=== PATIENT | male | born 1995 | race Caucasian/White ===

== ENCOUNTER 2016-07-25 21:55 | Emergency (ER) | payer BC, OTHER ==
[2016-07-25] MEDS ORDERED: MECLIZINE 12.5 MG TAB PO STA (22:42)
[2016-07-25] MEDS ORDERED: ACETAMINOPHEN TAB 500 MG TAB PO STA (22:42)
[2016-07-25] MEDS ORDERED: SODIUM CHLORIDE 0.9% 1,000 ML IV ONE (22:42)
[2016-07-25 23:09] LABS: Basophils # (A) 0.1 k/uL (0-0.2); Basophils % (A) 1 %; CHCM 33.2; Eosinophils # (A) 0.1 k/uL (0-0.7); Eosinophils % (A) 1 %; HCT 48.3 % (39.0-53.0); HDW 2.27; HGB 15.6 gm/dL (13.0-17.5); Luc # (Auto) 0.26; Luc % (Auto) 4; Lymphocytes # (A) 1.2 k/uL (1.0-4.8); Lymphocytes % (A) 19 %; MCH 28.3 pg (25.0-35.0); MCHC 32.2 g/dL (31.0-37.0); MCV 87.6 fL (80.0-100.0); Mean Platelet Volume 7.5; Monocytes # (A) 0.6 k/uL (0-1.0); Monocytes % (A) 10 %; Neutrophils # (A) 4.1 k/uL (1.3-7.7); Neutrophils % (A) 66 %; RBC 5.51 m/uL (4.30-5.90); RDW 12.9 % (11.5-15.5); WBC 6.3 k/uL (3.8-10.6); WBC (Perox) 6.48
--- NOTE | 2016-07-25 23:12 | ED ---
URI HPI - General Chief Complaint: Upper Respiratory Infection Stated Complaint: flu like symptoms/pain all over Time Seen by Provider: 07/25/16 22:18 Source: patient, RN notes reviewed Mode of arrival: ambulatory Limitations: no limitations - History of Present Illness Initial Comments: 21-year-old male presents emergency Department with multiple complaints. Patient states he has been sick essentially since May. Patient has been on some antibiotics amoxicillin and as advised. Patient states that he started to feel better after amoxicillin and azithromycin did nothing for. Patient has sinus congestion, cough and sore throat. Patient is started on amoxicillin ( primary care physician. Patient states that she he comes here today because he became very dizzy states room was spinning and he fell. Patient does not have a head injury. Patient states she is concerned with the dizziness. Patient states that it was better when he closes his eyes did not move. Patient denies any chest pain or palpitations. Patient states she also has been having on and off diarrhea for us for months and his family history of IBS. Patient has no abdominal pain denies abdominal cramping. Denies any melena or hematochezia - Related Data Home Medications Medication Instructions Recorded Confirmed Amoxicillin 500 mg PO Q8H 07/25/16 07/25/16 Lisinopril [Prinivil] 20 mg PO HS 07/25/16 07/25/16 guaiFENesin [Mucinex] 600 mg PO Q12H PRN 07/25/16 07/25/16 Previous Rx's Medication Instructions Recorded Oseltamivir [Tamiflu] 75 mg PO Q12HR #10 cap 07/25/16 Allergies Allergy/AdvReac Type Severity Reaction Status Date / Time No Known Allergies Allergy Verified 07/25/16 22:24 Review of Systems ROS Statement: Those systems with pertinent positive or pertinent negative responses have been documented in the HPI. ROS Other: All systems not noted in ROS Statement are negative. Past Medical History Past Medical History: Hypertension History of Any Multi-Drug Resistant Organisms: None Reported Past Surgical History: Adenoidectomy Past Psychological History: ADD/ADHD, Anxiety, Depression Smoking Status: Former smoker Past Alcohol Use History: None Reported Past Drug Use History: None Reported General Exam Limitations: no limitations General appearance: alert, in no apparent distress, obese Head exam: Present: atraumatic, normocephalic, normal inspection Eye exam: Present: normal appearance, PERRL, EOMI. Absent: scleral icterus, conjunctival injection, periorbital swelling ENT exam: Present: mucous membranes moist, TM's normal bilaterally, normal external ear exam. Absent: normal oropharynx (Postnasal drainage, sinus tenderness noted) Neck exam: Present: normal inspection, full ROM. Absent: tenderness, meningismus, lymphadenopathy Respiratory exam: Present: normal lung sounds bilaterally. Absent: respiratory distress, wheezes, rales, rhonchi, stridor Cardiovascular Exam: Present: normal rhythm, tachycardia, normal heart sounds. Absent: systolic murmur, diastolic murmur, rubs, gallop, clicks GI/Abdominal exam: Present: soft, normal bowel sounds. Absent: distended, tenderness, guarding, rebound, rigid Course Vital Signs 07/25/16 22:12 Temperature 100.9 F H Pulse Rate 114 H Respiratory 20 Rate Blood Pressure 175/96 O2 Sat by Pulse 97 Oximetry Medical Decision Making - Medical Decision Making 21-year-old male presented for congestion, fever, diarrhea. Patient has influenza. Patient also has been having ongoing diarrhea which she will follow- up with GI physician. Return parameters were discussed. - Lab Data Result diagrams: 07/25/16 22:55 07/25/16 22:55 Lab Results 07/25/16 07/25/16 07/25/16 Range/Units 22:20 22:55 22:55 WBC 6.3 (3.8-10.6) k/uL RBC 5.51 (4.30-5.90) m/uL Hgb 15.6 (13.0-17.5) gm/dL Hct 48.3 (39.0-53.0) % MCV 87.6 (80.0-100.0) fL MCH 28.3 (25.0-35.0) pg MCHC 32.2 (31.0-37.0) g/dL RDW 12.9 (11.5-15.5) % Plt Count 276 (150-450) k/uL Neutrophils % 66 % Lymphocytes % 19 % Monocytes % 10 % Eosinophils % 1 % Basophils % 1 % Neutrophils # 4.1 (1.3-7.7) k/uL Lymphocytes # 1.2 (1.0-4.8) k/uL Monocytes # 0.6 (0-1.0) k/uL Eosinophils # 0.1 (0-0.7) k/uL Basophils # 0.1 (0-0.2) k/uL Sodium 139 (137-145) mmol/L Potassium 4.6 (3.5-5.1) mmol/L Chloride 101 (98-107) mmol/L Carbon Dioxide 26 (22-30) mmol/L Anion Gap 12 mmol/L BUN 15 (9-20) mg/dL Creatinine 1.05 (0.66-1.25) mg/dL Est GFR (MDRD) Af Amer >60 (>60 ml/min/1.73 sqM) Est GFR (MDRD) Non-Af >60 (>60 ml/min/1.73 sqM) Glucose 91 (74-99) mg/dL Calcium 9.7 (8.4-10.2) mg/dL Total Bilirubin 0.6 (0.2-1.3) mg/dL AST 52 (17-59) U/L ALT 98 H (21-72) U/L Alkaline Phosphatase 56 (38-126) U/L Total Protein 8.0 (6.3-8.2) g/dL Albumin 4.5 (3.5-5.0) g/dL Amylase 46 (30-110) U/L Lipase 80 (23-300) U/L Influenza Type A RNA Not Detected (Not Detectd) Influenza Type B (PCR) Detected H (Not Detectd) Disposition Clinical Impression: Influenza B, Diarrhea Disposition: HOME SELF-CARE Condition: Stable Instructions: Influenza (ED) Additional Instructions: Please return to the Emergency Department if symptoms worsen or any other concerns. Prescriptions: Oseltamivir [Tamiflu] 75 mg PO Q12HR #10 cap Referrals: Reji Boudreaux DO [Primary Care Provider] - 1-2 days Daryn Alarcon MD [STAFF PHYSICIAN] - 1-2 days Time of Disposition: 23:43
[2016-07-25 23:21] LABS: ALT 98 U/L (21-72); AST 52 U/L (17-59); Alkaline Phosphatase 56 U/L (38-126); Amylase 46 U/L (30-110); Anion Gap 12 mmol/L; Blood Urea Nitrogen 15 mg/dL (9-20); Calcium 9.7 mg/dL (8.4-10.2); Carbon Dioxide 26 mmol/L (22-30); Chloride 101 mmol/L (98-107); Glucose 91 mg/dL (74-99); Non-African American GFR(MDRD) >60 (>60 ml/min/1.73 sqM); Potassium 4.6 mmol/L (3.5-5.1); Sodium 139 mmol/L (137-145); Total Bilirubin 0.6 mg/dL (0.2-1.3)
[2016-07-25] MEDS ORDERED: OSELTAMIVIR 75 MG CAP PO STA (23:41)
[2016-07-25 23:55] VITALS: BP 175/57; PULSE 105; RESP 18; TEMP 98.3
== END 2016-07-26 00:03 | disposition home or self-care (01) ==
LOC: EC 21:55
DX: J10.1 Influenza due to other identified influenza virus with other respiratory manifestations (principal); R19.7 Diarrhea, unspecified; Z83.79 Family history of other diseases of the digestive system; I10 Essential (primary) hypertension; Z79.899 Other long term (current) drug therapy; Z87.891 Personal history of nicotine dependence
CPT/HCPCS: 36415; 80053; 82150; 83690; 85025; 87502; 96360; 99283

== ENCOUNTER 2017-07-08 21:47 | Emergency (ER) | payer BC ==
--- NOTE | 2017-07-08 22:14 | ED ---
Recheck HPI - General Chief Complaint: Recheck/Abnormal Lab/Rx Stated Complaint: right side body numbness Time Seen by Provider: 07/08/17 21:58 Source: patient, RN notes reviewed, old records reviewed Mode of arrival: wheelchair Limitations: no limitations - History of Present Illness Initial Comments: This patient is a 22-year-old male presents emergency department today chief complaint of what initially started as some right foot numbness at work today. He reports that the numbness and tingling sensation is now going up his entire right side of his body of through the hip into stopping at the nipple line. Patient reports that there are some areas of the skin that he can feel touch. He reports that he has been able to walk and has normal motor function. He reports that he has no symptoms over the left side of his body. Denies any headache. Denies any falls or trauma. Patient states that he's had some lower back pain cc worse every once in a while. He states that he's had no saddle anesthesias. - Related Data Home Medications Medication Instructions Recorded Confirmed Lisinopril [Prinivil] 20 mg PO DAILY 07/25/16 07/08/17 Lisdexamfetamine Dimesylate 30 mg PO QAM 07/08/17 07/08/17 [Vyvanse] PARoxetine [Paxil] 20 mg PO QAM 07/08/17 07/08/17 Previous Rx's Medication Instructions Recorded Dexamethasone 0.75 mg PO DAILY #12 tab 07/08/17 Allergies Allergy/AdvReac Type Severity Reaction Status Date / Time No Known Allergies Allergy Verified 07/08/17 21:52 Review of Systems ROS Statement: Those systems with pertinent positive or pertinent negative responses have been documented in the HPI. ROS Other: All systems not noted in ROS Statement are negative. Past Medical History Past Medical History: Hypertension History of Any Multi-Drug Resistant Organisms: None Reported Past Surgical History: Adenoidectomy Past Psychological History: ADD/ADHD, Anxiety, Depression Smoking Status: Former smoker Past Alcohol Use History: None Reported Past Drug Use History: None Reported General Exam - General Exam Comments Initial Comments: This is a 22-year-old male. No acute distress. Limitations: no limitations General appearance: alert, in no apparent distress Head exam: Present: atraumatic, normocephalic, normal inspection Eye exam: Present: normal appearance, PERRL, EOMI. Absent: scleral icterus, conjunctival injection, periorbital swelling ENT exam: Present: normal exam, mucous membranes moist Neck exam: Present: normal inspection. Absent: tenderness, meningismus, lymphadenopathy Respiratory exam: Present: normal lung sounds bilaterally. Absent: respiratory distress, wheezes, rales, rhonchi, stridor Cardiovascular Exam: Present: regular rate, normal rhythm, normal heart sounds. Absent: systolic murmur, diastolic murmur, rubs, gallop, clicks GI/Abdominal exam: Present: soft, normal bowel sounds. Absent: distended, tenderness, guarding, rebound, rigid Extremities exam: Present: normal inspection, full ROM, normal capillary refill. Absent: tenderness, pedal edema, joint swelling, calf tenderness Back exam: Present: normal inspection Neurological exam: Present: alert, oriented X3, CN II-XII intact, normal gait, reflexes normal Expanded Patient oriented to: Present: person, place Speech: Present: fluid speech Cranial nerves: EOM's Intact: Normal Cerebellar function: Finger to Nose: Normal Upper motor neuron: Pronator Drift: Normal Sensory exam: Upper Extremity Light Touch: Normal, Lower Extremity Light Touch: Abnormal Right (Patient reports diminished sensation to Right lower leg in different areas. No consistentcy. Patient has full range of motion. No motor deficit. ) Motor strength exam: RUE: 5, LUE: 5, RLE: 5, LLE: 5 Eye Response: (4) open spontaneously Motor Response: (6) obeys commands Verbal Response: (5) oriented Ramin Total: 15 Psychiatric exam: Present: normal affect, normal mood Skin exam: Present: warm, dry, intact, normal color. Absent: rash Course Vital Signs 07/08/17 07/09/17 21:49 00:01 Temperature 98.6 F 97.3 F L Pulse Rate 111 H 93 Respiratory 20 18 Rate Blood Pressure 167/86 170/80 O2 Sat by Pulse 97 99 Oximetry Medical Decision Making - Medical Decision Making This patient is a 22-year-old male presents emergency department today chief complaint of what initially started as some right foot numbness at work today. He reports that the numbness and tingling sensation is now going up his entire right side of his body of through the hip into stopping at the nipple line. Patient reports that there are some areas of the skin that he can feel touch. He reports that he has been able to walk and has normal motor function. Patient was given IV fluids and lab work obtained. Labs show mild leukocytosis. Patient has no fever of other concerning sources for this at this time. Patient did relate yesterday he had one episode of vomiting yesterday. Patient has no motor deficits. Patient reports after receiving fluids he feels better and has normal sensation again. Lumbar spine xray is normal as well. Discussed patient needs to follow up with neurolgoy if this occurs again. All questions answered and return parameters discussed. Discussed attempting steriods for neuropathy. - Lab Data Result diagrams: 07/08/17 22:15 07/08/17 22:15 Lab Results 07/08/17 07/08/17 07/08/17 Range/Units 22:15 22:15 22:26 WBC 15.6 H (3.8-10.6) k/uL RBC 5.40 (4.30-5.90) m/uL Hgb 14.8 (13.0-17.5) gm/dL Hct 45.9 (39.0-53.0) % MCV 84.9 (80.0-100.0) fL MCH 27.4 (25.0-35.0) pg MCHC 32.2 (31.0-37.0) g/dL RDW 12.9 (11.5-15.5) % Plt Count 307 (150-450) k/uL Neutrophils % 80 % Lymphocytes % 14 % Monocytes % 5 % Eosinophils % 1 % Basophils % 0 % Neutrophils # 12.5 H (1.3-7.7) k/uL Lymphocytes # 2.1 (1.0-4.8) k/uL Monocytes # 0.7 (0-1.0) k/uL Eosinophils # 0.1 (0-0.7) k/uL Basophils # 0.0 (0-0.2) k/uL Sodium 141 (137-145) mmol/L Potassium 4.1 (3.5-5.1) mmol/L Chloride 105 (98-107) mmol/L Carbon Dioxide 21 L (22-30) mmol/L Anion Gap 15 mmol/L BUN 19 (9-20) mg/dL Creatinine 1.00 (0.66-1.25) mg/dL Est GFR (MDRD) Af Amer >60 (>60 ml/min/1.73 sqM) Est GFR (MDRD) Non-Af >60 (>60 ml/min/1.73 sqM) Glucose 94 (74-99) mg/dL Calcium 10.1 (8.4-10.2) mg/dL Urine Color Yellow Urine Appearance Clear (Clear) Urine pH 5.5 (5.0-8.0) Ur Specific [place] 1.029 (1.001-1.035) Urine Protein 1+ H (Negative) Urine Glucose (UA) Negative (Negative) Urine Ketones 1+ H (Negative) Urine Blood Negative (Negative) Urine Nitrite Negative (Negative) Urine Bilirubin Negative (Negative) Urine Urobilinogen 2.0 (<2.0) mg/dL Ur Leukocyte Esterase Negative (Negative) Urine RBC <1 (0-5) /hpf Urine WBC 1 (0-5) /hpf Ur Squamous Epith Cells 1 (0-4) /hpf Hyaline Casts 12 H (0-2) /lpf Urine Mucus Many H (None) /hpf Urine Opiates Screen (NotDetected) Ur Oxycodone Screen (NotDetected) Urine Methadone Screen (NotDetected) Ur Propoxyphene Screen (NotDetected) Ur Barbiturates Screen (NotDetected) U Tricyclic Antidepress (NotDetected) Ur Phencyclidine Scrn (NotDetected) Ur Amphetamines Screen (NotDetected) U Methamphetamines Scrn (NotDetected) U Benzodiazepines Scrn (NotDetected) Urine Cocaine Screen (NotDetected) U Marijuana (THC) Screen (NotDetected) 07/08/17 Range/Units 22:26 WBC (3.8-10.6) k/uL RBC (4.30-5.90) m/uL Hgb (13.0-17.5) gm/dL Hct (39.0-53.0) % MCV (80.0-100.0) fL MCH (25.0-35.0) pg MCHC (31.0-37.0) g/dL RDW (11.5-15.5) % Plt Count (150-450) k/uL Neutrophils % % Lymphocytes % % Monocytes % % Eosinophils % % Basophils % % Neutrophils # (1.3-7.7) k/uL Lymphocytes # (1.0-4.8) k/uL Monocytes # (0-1.0) k/uL Eosinophils # (0-0.7) k/uL Basophils # (0-0.2) k/uL Sodium (137-145) mmol/L Potassium (3.5-5.1) mmol/L Chloride (98-107) mmol/L Carbon Dioxide (22-30) mmol/L Anion Gap mmol/L BUN (9-20) mg/dL Creatinine (0.66-1.25) mg/dL Est GFR (MDRD) Af Amer (>60 ml/min/1.73 sqM) Est GFR (MDRD) Non-Af (>60 ml/min/1.73 sqM) Glucose (74-99) mg/dL Calcium (8.4-10.2) mg/dL Urine Color Urine Appearance (Clear) Urine pH (5.0-8.0) Ur Specific [place] (1.001-1.035) Urine Protein (Negative) Urine Glucose (UA) (Negative) Urine Ketones (Negative) Urine Blood (Negative) Urine Nitrite (Negative) Urine Bilirubin (Negative) Urine Urobilinogen (<2.0) mg/dL Ur Leukocyte Esterase (Negative) Urine RBC (0-5) /hpf Urine WBC (0-5) /hpf Ur Squamous Epith Cells (0-4) /hpf Hyaline Casts (0-2) /lpf Urine Mucus (None) /hpf Urine Opiates Screen Not Detected (NotDetected) Ur Oxycodone Screen Not Detected (NotDetected) Urine Methadone Screen Not Detected (NotDetected) Ur Propoxyphene Screen Not Detected (NotDetected) Ur Barbiturates Screen Not Detected (NotDetected) U Tricyclic Antidepress Not Detected (NotDetected) Ur Phencyclidine Scrn Not Detected (NotDetected) Ur Amphetamines Screen Not Detected (NotDetected) U Methamphetamines Scrn Not Detected (NotDetected) U Benzodiazepines Scrn Not Detected (NotDetected) Urine Cocaine Screen Not Detected (NotDetected) U Marijuana (THC) Screen Not Detected (NotDetected) - Radiology Data Radiology results: report reviewed Negative lumbar spine exam. Disposition Clinical Impression: Paresthesia of right lower extremity Disposition: HOME SELF-CARE Condition: Good Instructions: Paresthesia (ED) Additional Instructions: Patient advised to take the medications as prescribed and follow-up with neurologist. Return to the emergency department if any alarming signs or symptoms occur. Also recommend following up with primary care physician. Prescriptions: Dexamethasone 0.75 mg PO DAILY #12 tab Referrals: Ozzie Kennedy III, MD [Primary Care Provider] - 1-2 days Time of Disposition: 23:41
[2017-07-08 22:31] LABS: Basophils % (A) 0 %; Eosinophils # (A) 0.1 k/uL (0-0.7); Eosinophils % (A) 1 %; HCT 45.9 % (39.0-53.0); HGB 14.8 gm/dL (13.0-17.5); Lymphocytes # (A) 2.1 k/uL (1.0-4.8); Lymphocytes % (A) 14 %; MCH 27.4 pg (25.0-35.0); MCHC 32.2 g/dL (31.0-37.0); MCV 84.9 fL (80.0-100.0); Mean Platelet Volume 8.2; Monocytes # (A) 0.7 k/uL (0-1.0); Monocytes % (A) 5 %; Neutrophils # (A) 12.5 k/uL (1.3-7.7); Neutrophils % (A) 80 %; Platelet Count 307 k/uL (150-450); RDW 12.9 % (11.5-15.5); WBC 15.6 k/uL (3.8-10.6)
[2017-07-08 22:38] LABS: Appearance,Urine Clear (Clear); Bilirubin,Urine Negative (Negative); Blood,Urine Negative (Negative); Color,Urine Yellow; Glucose,Urine (UA) Negative (Negative); Hyaline Casts,Urine 12 /lpf (0-2); Ketones,Urine 1+ (Negative); Leukocyte Esterase,Urine Negative (Negative); Mucus,Urine Many /hpf; Nitrite,Urine Negative (Negative); PH, Urine 5.5 (5.0-8.0); Protein,Urine 1+ (Negative); RBC,Urine <1 /hpf (0-5); Specific Gravity,Urine 1.029 (1.001-1.035); Squamous Epithelial Cell,Urine 1 /hpf (0-4); WBC,Urine 1 /hpf (0-5)
[2017-07-08 22:44] LABS: Anion Gap 15 mmol/L; Blood Urea Nitrogen 19 mg/dL (9-20); Calcium 10.1 mg/dL (8.4-10.2); Carbon Dioxide 21 mmol/L (22-30); Chloride 105 mmol/L (98-107); Glucose 94 mg/dL (74-99); Potassium 4.1 mmol/L (3.5-5.1); Sodium 141 mmol/L (137-145)
--- NOTE | 2017-07-08 22:46 | XR ---
EXAMINATION TYPE: XR lumbar spine 2 or 3V DATE OF EXAM: 07/08/2017 COMPARISON: NONE HISTORY: Leg pain TECHNIQUE: 3 views FINDINGS: The lumbar vertebra have normal alignment. Posterior elements are intact. Sacroiliac joints appear normal. There is no evidence of a fracture. IMPRESSION: Negative lumbar spine exam.
[2017-07-08 22:52] LABS: Amphetamine Screen,Urine Not Detected (NotDetected); Barbiturate Screen,Urine Not Detected (NotDetected); Benzodiazepines Screen,Urine Not Detected (NotDetected); Cocaine Screen,Urine Not Detected (NotDetected); Methadone Screen, Urine Not Detected (NotDetected); Opiate Screen,Urine Not Detected (NotDetected); Oxycodone Screen, Urine Not Detected (NotDetected); Phencyclidine Screen,Urine Not Detected (NotDetected); Tricyclic Antidepressant,Urine Not Detected (NotDetected); Urn Cannabinoid Scrn Not Detected (NotDetected)
[2017-07-09 00:03] VITALS: BP 170/80; PULSE 93; RESP 18; TEMP 97.3
== END 2017-07-09 00:03 | disposition home or self-care (01) ==
LOC: EC 21:47
DX: R20.2 Paresthesia of skin (principal); I10 Essential (primary) hypertension; F90.9 Attention-deficit hyperactivity disorder, unspecified type; F41.9 Anxiety disorder, unspecified; F32.9 Major depressive disorder, single episode, unspecified; Z87.891 Personal history of nicotine dependence; Z79.899 Other long term (current) drug therapy
CPT/HCPCS: 36415; 72100; 80048; 80306; 81001; 85025; 99284

== ENCOUNTER → 2023-03-20 | Outpatient (CLI) | payer BC ==
[2023-03-20 13:37] VITALS: BP 170/89; PULSE 98; RESP 16; TEMP 98; BMI 74.2
--- NOTE | 2023-03-20 15:55 | P.HPBAR ---
Bariatric H&P - History & Physicial H&P Date: 03/20/23 History & Physicial: Visit/CC: Initial Patient initial contact: Initial weight: 280.377 kg Initial weight in pounds: 618.13 Height: 6 ft 4.5 in Initial BMI: 74.2 Last weight: Current weight: 280.377 kg Current weight in pounds: 618.13 Current BMI: 74.2 [place] body weight (based on NIH guidelines): 92.986 kg Excess body weight loss: 0.0% The patient is a 27 year-old M who presents for Bariatric Assessment. Patient interested in weight loss surgery. Says his weight has been increasing over time to the point he has difficulty at times ambulating. Patient with significant weight at 618 BMI 74.2. Patient describes lower extremity swelling and is on Lasix. States at times his blood pressure is elevated. No history of sleep apnea study. Denies DVT or GERD. Patient does vape 2-3 times per hour. Says he is trying to cut back on that. No cigarette use. Patient states he is interested in either gastric bypass or sleeve gastrectomy. Only surgical history is adenoid. Review of Systems The patient denies any acute changes in vision or hearing, no dysphagia or odynophagia, no chest pain or shortness of breath, no dysuria or hematuria, no headache, no runny nose, no rectal bleeding or melena, no unexplained weight loss Past Medical History Past Medical History: Hypertension, Sleep Apnea/CPAP/BIPAP History of Any Multi-Drug Resistant Organisms: None Reported Past Surgical History: Adenoidectomy Past Anesthesia/Blood Transfusion Reactions: No Reported Reaction Smoking Status: Current every day smoker Surgical - Exam Vital Signs Temp Pulse Resp BP 98 F 98 16 170/89 03/20/23 13:28 03/20/23 13:28 03/20/23 13:28 03/20/23 13:28 Physical exam: General: Well-developed, well-nourished HEENT: Normocephalic, sclerae nonicteric Abdomen: Nontender, nondistended, no palpable hernias Extremities: Bilateral lower extremity edema Neuro: Alert and oriented Bariatric Assessment & Plan (1) Morbid obesity with BMI of 70 and over, adult Narrative/Plan: 27-year-old male with morbid obesity and significant elevation of BMI. Patient certainly good candidate for bariatric surgery. After discussing options of sleeve gastrectomy and gastric bypass patient states he is leaning more towards gastric bypass. Given the significant obesity favor patient being seen at a larger tertiary care center for his surgery and postoperative care. Options discussed. We'll refer to [facility] for further evaluation. Patient will contact me with any additional questions. Status: Acute Bariatric Checklist Checklist: Plan: Checklist: EGD: 1. Hiatal hernia: 2. H. Pylori: HgbA1c: Vitamin D: Smoking: Former smoker Primary care physician referral: Aggie Psychiatry clearance: Cardiology clearance: Sleep study: Diet journal: VTE risk score: VTE risk level: Rehab needs at discharge:
== END ==
LOC: BARWHC3 13:14
PROVIDERS: ATTEND Surgery
DX: E66.01 Morbid (severe) obesity due to excess calories (principal); I10 Essential (primary) hypertension; F17.200 Nicotine dependence, unspecified, uncomplicated; G47.30 Sleep apnea, unspecified; Z68.45 Body mass index [BMI] 70 or greater, adult; Z79.899 Other long term (current) drug therapy
CPT/HCPCS: 99202